=== PATIENT | male | born 2005 | race Caucasian/White ===

== ENCOUNTER 2024-10-06 07:15 | Emergency (ER) | payer OTHER, SELFPAY ==
[2024-10-06 07:15] VITALS: BP 119/70; PULSE 61; RESP 14; TEMP 36.1; O2SAT 98; BMI 23.5
--- NOTE | 2024-10-06 07:19 | EX.ED.DYSGE1 ---
HPI History of Present Illness Chief Complaint: Abd Pain PFSH PFS Medical History no medical history Allergy/AdvReac Type Severity Reaction Status Date / Time No Known Allergies Allergy Verified 10/06/24 07:16 Social History Smoking Status: Never smoker EXAM Physical Exam Const Vital Signs: 10/06/24 07:15 10/06/24 09:15 10/06/24 10:54 Temperature 96.9 F L 97.3 F L Temperature Source Temporal Pulse Rate 61 78 78 Respiratory Rate 14 18 18 Blood Pressure 119/70 112/87 H 112/87 H Blood Pressure Mean 86 95 95 Pulse Ox 98 98 98 Oxygen Delivery Method Room Air [facility] [place] Medical decision making narrative: HISTORY OF PRESENT ILLNESS: Chief complaint: Abdominal pain 18-year-old male presents concern for abdominal pain, diarrhea and bright red blood per rectum. He notes that started Saturday10/03/2024. Notes he was recently on a camping trip. No new foods. Notes someone at work also had diarrhea. 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 Denies history of abdominal surgeries. Denies vomiting. Denies chest pain. Denies taking blood thinners or any history of bleeding disorders. Denies recent antibiotics. REVIEW OF SYSTEMS: Pertinent positives: Abdominal pain, bright red blood per rectum Pertinent negatives: Vomiting PHYSICAL EXAM: Nursing triage notes reviewed, Vital signs reviewed Constitutional: please see [place] HENT: MMM Eyes: Pupils equal round and reactive to light, Extraocular muscles intact Neck: No stridor, no JVD, full neck ROM Lungs: Clear to auscultation, No wheezing or rales. No increased work of breathing, no conversational dyspnea, no accessory muscle use, no nasal flaring. 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 Rectal showed no melena, no active bleeding, no fissures, no hemorrhoids no other lesions. Stool sample sent. Extremities: No edema Neuro: No new focal neurological deficits, cranial nerves II through XII intact, 5/5 strength in all present extremities. Intact sensation to light touch in all present extremities, 2+ reflexes bilateral patella tendons. Skin: No rash or lesions noted MEDICAL DECISION MAKING: Chief Complaint: please see HPI External records reviewed: Reviewed prior labs and images Factors affecting care: none Social determinants of health: none History obtained from others: none Consults: none MDM Narrative: 18-year-old male presents concern for bright blood per rectum in the setting of diarrhea and abdominal pain. He was initially hemodynamically stable, afebrile and nontoxic-appearing. I considered the following differential diagnosis: Anemia, GI bleed, hemorrhoid, infectious/invasive diarrhea. I obtained labs and performed rectal exam. ALL IMAGES (IF OBTAINED) HAVE BEEN PERSONALLY REVIEWED AND INTERPRETED BY MYSELF. CBC without leukocytosis, severe anemia, no thrombocytopenia. BMP without evidence of significant electrolyte abnormalities, no anion gap, no acute kidney injury. LFTs show no evidence of hepatobiliary pathology. Lipase is wnl indicating no pancreatic inflammation. Stool occult positive consistent with lower GI bleed Ova and parasites, enteric stool panel cannot be obtained secondary to patient not been able to provide a sample. On reassessment patient abdominal exam remained benign. Vitals remained stable. Despite having a positive Hemoccult his blood counts were stable. Did not start empiric antibiotics as I am not sure which organism is causing his symptoms. Unclear etiology. Instructed on aggressive oral fluid rehydration. Gave strict return precautions and follow-up instructions and GI follow-up instructions. The patient and/or family, caregivers express understanding. The patient and/or family, caregivers agrees with the plan. Shared decision making: I will have a discussion with the patient and or visitors regarding risk/benefits of further testing or admission. They will be made aware of of the risk/benefits inherent in this decision they will be given the opportunity to voice understanding. Total critical care time today provided was at least 0 minutes. This excludes separately billable procedures. Critical care time (if documented) is secondary to the patient having high probability of clinically significant/life threatening deterioration in the patient's condition which required my urgent intervention. Impression: 1. Acute abdominal pain 2. Diarrhea 3. GI bleed Dispo: Discharge home This note was generated with [employer]acer[employer] software. It may contain incorrect words, spelling, and punctuation that were not noted in review of the chart prior to signing. Lab Data Labs: Laboratory Results - last 24 hr 10/06/24 07:45 WBC 3.8 L RBC 5.12 Hgb 14.4 Hct 41.0 MCV 80.1 MCH 28.1 MCHC 35.1 RDW Std Deviation 35.5 RDW Coeff of Deepthi 12.3 Plt Count 235 MPV 9.0 Immature Gran % (Auto) 0.300 Neut % (Auto) 48.8 Lymph % (Auto) 33.3 [place] % (Auto) 16.0 H Eos % (Auto) 1.3 Baso % (Auto) 0.3 Absolute Neuts (auto) 1.8 L Absolute Lymphs (auto) 1.25 Nucleated RBC % 0 Sodium 138 Potassium 4.0 Chloride 102 Carbon Dioxide 26.0 Anion Gap 10 BUN 14 Creatinine 0.93 Estim Creat Clear Calc 127.76 Est GFR (MDRD) Non-Af 121 BUN/Creatinine Ratio 14.5 Glucose 98 Calcium 9.3 Total Bilirubin 0.65 AST 20 ALT 18 Alkaline Phosphatase 80 Total Protein 7.0 Albumin 4.1 Globulin 2.9 Albumin/Globulin Ratio 1.4 Lipase 16 Discharge Plan Triage Chief Complaint: Abd Pain ED Provider: Isaac Tipton Dx/Rx/DC Orders Clinical Impression: Gastroenteritis Instructions: When Your Child Has Diarrhea, ED Lower GI Bleeding (Stable) Primary Care Provider: Byron Clarke Referrals: Byron Clarke MD [Primary Care Provider] - Activity Restrictions/Additional Instructions: Thank you for trusting us with your care today! Your labs are reassuring. Your stool sample was positive for blood. We cannot collect a sample to test for different bacteria. Given we cannot test I would not start you on antibiotic at this time. Please take Tylenol (2 pills, 650 mg), ibuprofen (2 pills, 400 mg) every 6 hours as needed for pain and fever control. Please drink plenty of fluids. Please return to the emergency department if your symptoms change or worsen. Please follow with your primary care physician for further outpatient evaluation and management. Print Language: Estonian Disposition Disposition: Home, Self Care Discharge Date/Time: 10/06/24 10:59
[2024-10-06] MEDS: 0.9% Normal Saline (1000mL) 1,000 ML 999 ML IV (07:50)
[2024-10-06] MEDS: Ketorolac 15 MG/ML Vial IV (07:51)
[2024-10-06 08:14] LABS: Absolute Lymphocyte Count 1.25 X10^3/uL (0.83-4.51); Absolute Neutrophil Count 1.8 X10^3/uL (2.0-7.7); Basophil# 0.01 X10^3/uL; Basophil% 0.3 % (0-1); Eosinophil# 0.05 X10^3/uL; Eosinophils% 1.3 % (0-5); Hemoglobin 14.4 g/dL (13.0-16.5); Lymphocyte # 1.25 X10^3/ul (0.83-4.51); Lymphocyte % 33.3 % (19-41); Mean Corp Hgb Conc 35.1 g/dL (32-36); Mean Corpuscular Hgb 28.1 pg (27.0-32.0); Mean Corpuscular Volume 80.1 fL (80-94); NRBC Flagged by Analyzer 0 % (0-5); Neutrophil # 1.83 X10^3/uL (2.7-7.7); Neutrophil % 48.8 % (47-70); Platelet Count 235 K/mm3 (150-450); RBC Distribution Width CV 12.3 % (11.6-14.6); RBC Distribution Width SD 35.5 fl (35.1-43.9); Red Blood Count 5.12 M/mm3 (4.6-6.2); White Blood Count 3.8 K/mm3 (4.4-11.0)
[2024-10-06 08:52] LABS: ALB/GLOB Ratio 1.4 RATIO (0.9-2.4); AST(SGOT) 20 U/L (<=37); Alanine Aminotransfer ALT/SGPT 18 U/L (<=46); Albumin, Serum 4.1 g/dL (3.5-5.0); Alkaline Phosphatase 80 U/L (40-129); Anion Gap 10 (5-15); BUN 14 mg/dL (4-19); BUN/Creat Ratio 14.5 RATIO (10-20); Calcium,Total 9.3 mg/dL (7.6-11.0); Chloride 102 mmol/L (98-108); Creatinine, Serum 0.93 mg/dL (0.70-1.20); EST Glomerular Filtration Rate 121 (>60); Estimated Creatinine Clearance 127.76 ml/min (50-250); Globulin 2.9 g/dL (2.2-4.2); Glucose 98 mg/dL (70-99); Lipase 16 U/L (13-75); Sodium Level 138 mmol/L (133-145); Total Bilirubin 0.65 mg/dL (0.00-1.30)
[2024-10-06 09:15] VITALS: BP 112/87; PULSE 78; RESP 18; O2SAT 98
[2024-10-06 10:54] VITALS: BP 112/87; PULSE 78; RESP 18; TEMP 36.3; O2SAT 98
== END 2024-10-06 10:59 | disposition home or self-care (01) ==
PROVIDERS: Emergency Provider Emergency Medicine; PCP Pediatrics; Visit Provider Emergency Medicine
DX: K52.9 Noninfective gastroenteritis and colitis, unspecified (principal); R10.9 Unspecified abdominal pain
CPT/HCPCS: 80053; 82274; 83690; 85025; 96361; 96374; 99283; A4216